=== PATIENT | male | born 1960 | race Asian ===

== ENCOUNTER 2018-04-17 00:20 | Emergency (ER) | payer SELFPAY ==
[~2018-04-17] VITALS: Ht 167.6 cm; Wt 72.7 kg
[2018-04-17] MEDS ORDERED: CefTRIAXone SODIUM 1 GM/VIAL IM ONE (02:15)
[2018-04-17] MEDS ORDERED: AZITHROMYCIN 250 MG TABLET PO ONE (02:15)
[2018-04-17] MEDS ORDERED: LIDOCAINE/PF 1% 2 ML VIAL IM ONE (02:15)
[2018-04-17 03:28] VITALS: BP 135/82
== END 2018-04-17 03:39 | disposition home or self-care (01) ==
LOC: EMS 00:22
DX: J18.9 Pneumonia, unspecified organism (principal); E11.9 Type 2 diabetes mellitus without complications; F17.210 Nicotine dependence, cigarettes, uncomplicated; F12.90 Cannabis use, unspecified, uncomplicated
CPT/HCPCS: 71045; 96372; 99283; J0696; J3490

== ENCOUNTER 2020-04-23 10:54 | Emergency (ER) | payer MEDICAID ==
[~2020-04-23] VITALS: Ht 167.6 cm; Wt 70.5 kg
[2020-04-23] MEDS ORDERED: ACETAMINOPHEN 500 MG TABLET PO ONE (12:00)
[2020-04-23] MEDS ORDERED: GuaiFENesin/D-METHORPHAN [SUGAR-FREE] 200-20MG/10 ML SYRUP UDCUP PO ONE (12:00)
[2020-04-23 12:32] LABS: BASOPHILS % (AUTO) 1.3 % (0.0-2.0); EOSINOPHILS % (AUTO) 0 % (1.0-6.0); HEMATOCRIT 45.7 % (41-53); HEMOGLOBIN 15.3 g/dL (13.5-17.5); LYMPHOCYTES # (AUTO) 0.6 K/uL (1.0-4.8); LYMPHOCYTES % (AUTO) 12.7 % (22.0-44.0); MEAN CORPUSCULAR HEMOGLOBIN 30.1 pg (26.0-34.0); MEAN CORPUSCULAR HGB CONC 33.6 G/dL (31.0-37.0); MEAN CORPUSCULAR VOLUME 90 fL (80-100); MONOCYTES # (AUTO) 0.4 K/uL (0.1-1.0); MONOCYTES % (AUTO) 8.5 % (2.0-9.0); NEUTROPHILS # (AUTO) 3.7 K/uL (1.8-7.7); NEUTROPHILS % (AUTO) 77.5 % (40.0-70.0); PLATELET COUNT (AUTO) 120 K/uL (150-450)
[2020-04-23 12:48] LABS: COVID AG,FIA SOURCE NASOPHARYNGEAL
[2020-04-23 13:02] LABS: ANION GAP 12 mmol/L (8-16); CALCIUM, TOTAL 7.9 mg/dL (8.8-10.5); CARBON DIOXIDE 25 mmol/L (22-29); CHLORIDE 95 mmol/L (98-107); CREATININE 1.26 mg/dL (0.60-1.30); GLOMERULAR FILTR. RATE CALC 59 mL/min (>60); GLUCOSE,RANDOM 201 mg/dL (70-110); POTASSIUM 3.7 mmol/L (3.5-5.1); SODIUM SERUM 132 mmol/L (136-145); UREA NITROGEN, BLOOD 12 mg/dL (7-18)
[2020-04-23 13:07] LABS: ALANINE AMINOTRANSFERASE 52 U/L (12-78); ALBUMIN 3.3 g/dL (3.4-5.0); ALKALINE PHOSPHATASE 87 U/L (46-116); ASPARTATE AMINOTRANSFERASE 34 U/L (15-37); BILIRUBIN,TOTAL 0.4 mg/dL (0.1-1.0); TOTAL PROTEIN, SERUM 7.4 g/dL (6.4-8.2)
[2020-04-23 13:08] LABS: B-TYPE NATRIURETIC PEPTIDE < 5 pg/mL (0-100)
[2020-04-23 13:50] VITALS: BP 133/79
== END 2020-04-23 14:32 | disposition home or self-care (01) ==
LOC: EMS 10:56
DX: U07.1 COVID-19 (principal)
CPT/HCPCS: 36415; 71045; 80053; 83880; 84484; 85025; 87426; 99284; U0003

== ENCOUNTER 2024-10-02 09:25 | Inpatient (IN) | payer MEDICAID ==
[~2024-10-02] VITALS: Ht 170.2 cm; Wt 80.6 kg
[2024-10-02 10:22] LABS: BASOPHILS % (AUTO) 0.4 % (0.0-2.0); HEMATOCRIT 43.1 % (41-53); HEMOGLOBIN 14.9 g/dL (13.5-17.5); LYMPHOCYTES # (AUTO) 1.3 K/uL (1.0-4.8); MEAN CORPUSCULAR HEMOGLOBIN 30.6 pg (26.0-34.0); MEAN CORPUSCULAR HGB CONC 34.6 G/dL (31.0-37.0); MEAN CORPUSCULAR VOLUME 88 fL (80-100); MONOCYTES # (AUTO) 0.6 K/uL (0.1-1.0); MONOCYTES % (AUTO) 7.7 % (2.0-9.0); NEUTROPHILS # (AUTO) 6.2 K/uL (1.8-7.7); NEUTROPHILS % (AUTO) 74.9 % (40.0-70.0); PLATELET COUNT (AUTO) 232 K/uL (150-450); RED BLOOD CELL COUNT(AUTO) 4.87 MIL/uL (4.50-5.90); RED CELL DISTRIBUTION WIDTH 13.3 % (11.5-14.5); WHITE BLOOD COUNT (AUTO) 8.3 K/uL (4.5-11.0)
[2024-10-02 10:33] LABS: ALCOHOL, BLOOD (SERUM) < 3 mg/dL (0-10)
[2024-10-02 10:36] LABS: ANION GAP 8 mmol/L (8-16); CALCIUM, TOTAL 8.6 mg/dL (8.8-10.5); CARBON DIOXIDE 28 mmol/L (22-29); CHLORIDE 100 mmol/L (98-107); CREATININE 1.09 mg/dL (0.60-1.30); GLOMERULAR FILTR. RATE CALC > 60 mL/min (>60); GLUCOSE,RANDOM 289 mg/dL (70-110); POTASSIUM 3.6 mmol/L (3.5-5.1); SODIUM SERUM 136 mmol/L (136-145); TROPONIN I-HIGH SENSITIVITY 54 ng/L (<76); UREA NITROGEN, BLOOD 10 mg/dL (7-18)
[2024-10-02 10:38] LABS: B-TYPE NATRIURETIC PEPTIDE 109 pg/mL (0-100)
[2024-10-02 10:42] LABS: CREATINE KINASE, TOTAL ONLY 75 U/L (39-308)
[2024-10-02 10:57] LABS: COVID AG,FIA SOURCE NASAL SWAB
[2024-10-02] MEDS: FUROSEMIDE 20 MG/2 ML VIAL IVP ONE (11:17)
[2024-10-02 11:28] LABS: INFLUENZA TYPE A NEGATIVE FOR TYPE A (NEGATIVE); INFLUENZA TYPE B NEGATIVE FOR TYPE B (NEGATIVE); SARS-COV2 (COVID) ANTIGEN,FIA Negative (Negative)
[2024-10-02 12:36] LABS: PH,URINE DRUG SCREEN 6.5 (5.0-8.0)
[2024-10-02 12:43] LABS: ALCOHOL, URINE DRUG SCREEN NEGATIVE (NEGATIVE); AMPHET/METH SCREEN,URINE POSITIVE (NEGATIVE); BARBITURATE SCREEN, URINE NEGATIVE (NEGATIVE); BENZODIAZEPINES SCREEN,URINE NEGATIVE (NEGATIVE); CANNABINOID SCREEN,URINE NEGATIVE (NEGATIVE); COCAINE SCREEN,URINE NEGATIVE (NEGATIVE); METHADONE SCREEN, URINE NEGATIVE (NEGATIVE); OPIATE SCREEN,URINE POSITIVE (NEGATIVE); PHENCYCLIDINE SCREEN,URINE NEGATIVE (NEGATIVE)
[2024-10-02] MEDS ORDERED: ALBUTEROL SULFATE 2.5 MG/0.5 ML NEB SOLUTION NEB PRN (13:00)
[2024-10-02] MEDS ORDERED: ACETAMINOPHEN 325 MG TABLET PO PRN (13:00)
[2024-10-02] MEDS ORDERED: DEXTROSE 50%-WATER 25 GM/50 ML SYRINGE IVP PRN (13:30)
[2024-10-02 15:51] VITALS: BP 126/57; PULSE 89; RESP 19; TEMP 98.1; O2SAT 99
[2024-10-02] MEDS: HEPARIN SODIUM,PORCINE 5,000 UNITS/ML VIAL SQ SCH (16:01)
[2024-10-02 16:30] VITALS: PULSE 96; RESP 16; O2SAT 97
[2024-10-02 17:16] LABS: GLUCOMETER DEV NAME(LOC) 5S.1D; GLUCOSE,POINT OF CARE 145 MG/DL (70-110)
[2024-10-02 19:16] VITALS: BP 114/74; PULSE 105; RESP 19; TEMP 97.9; O2SAT 93
[2024-10-02] MEDS: DOCUSATE SODIUM 100 MG CAPSULE PO SCH (20:06)
[2024-10-02] MEDS: INSULIN LISPRO 100 UNITS/ML SQ PRN (20:08)
[2024-10-02 23:50] VITALS: BP 122/89; PULSE 99; RESP 18; TEMP 98.2; O2SAT 95
[2024-10-03 04:04] VITALS: BP 123/75; PULSE 96; RESP 19; TEMP 97.9; O2SAT 96
[2024-10-03 07:11] LABS: BASOPHILS % (AUTO) 0.2 % (0.0-2.0); EOSINOPHILS % (AUTO) 1.7 % (1.0-6.0); HEMATOCRIT 44.3 % (41-53); HEMOGLOBIN 15.1 g/dL (13.5-17.5); LYMPHOCYTES # (AUTO) 1.7 K/uL (1.0-4.8); LYMPHOCYTES % (AUTO) 21.9 % (22.0-44.0); MEAN CORPUSCULAR HEMOGLOBIN 30.5 pg (26.0-34.0); MEAN CORPUSCULAR HGB CONC 34.2 G/dL (31.0-37.0); MEAN CORPUSCULAR VOLUME 89 fL (80-100); MONOCYTES # (AUTO) 0.9 K/uL (0.1-1.0); NEUTROPHILS # (AUTO) 4.9 K/uL (1.8-7.7); NEUTROPHILS % (AUTO) 64.2 % (40.0-70.0); PLATELET COUNT (AUTO) 242 K/uL (150-450); RED BLOOD CELL COUNT(AUTO) 4.96 MIL/uL (4.50-5.90); RED CELL DISTRIBUTION WIDTH 13.8 % (11.5-14.5); WHITE BLOOD COUNT (AUTO) 7.7 K/uL (4.5-11.0)
[2024-10-03 07:30] LABS: ANION GAP 7 mmol/L (8-16); CALCIUM, TOTAL 8.6 mg/dL (8.8-10.5); CARBON DIOXIDE 30 mmol/L (22-29); CHLORIDE 101 mmol/L (98-107); CREATININE 0.89 mg/dL (0.60-1.30); GLOMERULAR FILTR. RATE CALC > 60 mL/min (>60); GLUCOSE,RANDOM 200 mg/dL (70-110); POTASSIUM 3.8 mmol/L (3.5-5.1); SODIUM SERUM 138 mmol/L (136-145); UREA NITROGEN, BLOOD 12 mg/dL (7-18)
[2024-10-03] MEDS: FAMOTIDINE 20 MG TABLET PO SCH (08:03)
[2024-10-03 08:28] VITALS: BP 138/88; PULSE 94; RESP 18; TEMP 98.4; O2SAT 99
[2024-10-03 11:26] LABS: GLUCOMETER DEV NAME(LOC) 5S.2D; GLUCOSE,POINT OF CARE 163 MG/DL (70-110)
[2024-10-03 11:26] LABS: GLUCOMETER DEV NAME(LOC) 5S.2D; GLUCOSE,POINT OF CARE 233 MG/DL (70-110)
[2024-10-03] MEDS: lisinopriL 5 MG TABLET PO SCH (11:32)
[2024-10-03 11:51] LABS: GLUCOMETER DEV NAME(LOC) 5S.1D; GLUCOSE,POINT OF CARE 186 MG/DL (70-110)
[2024-10-03 12:16] VITALS: BP 119/75; PULSE 92; RESP 18; TEMP 98.1; O2SAT 95
[2024-10-03 16:16] VITALS: BP 140/77; PULSE 94; RESP 18; TEMP 97.2; O2SAT 95
[2024-10-03 17:30] LABS: GLUCOMETER DEV NAME(LOC) 5S.1D; GLUCOSE,POINT OF CARE 233 MG/DL (70-110)
[2024-10-03 19:34] VITALS: BP 112/77; PULSE 105; RESP 17; TEMP 97.5; O2SAT 96
[2024-10-03 21:30] LABS: GLUCOMETER DEV NAME(LOC) 5S.1D; GLUCOSE,POINT OF CARE 194 MG/DL (70-110)
[2024-10-03 23:15] VITALS: BP 131/86; PULSE 74; RESP 18; TEMP 97.7; O2SAT 95
[2024-10-04 04:47] VITALS: BP 129/81; PULSE 101; RESP 18; TEMP 98.1; O2SAT 98
[2024-10-04 06:31] LABS: GLUCOMETER DEV NAME(LOC) 5S.2D; GLUCOSE,POINT OF CARE 202 MG/DL (70-110)
[2024-10-04 07:58] LABS: BASOPHILS % (AUTO) 0.3 % (0.0-2.0); EOSINOPHILS % (AUTO) 2.7 % (1.0-6.0); HEMATOCRIT 44.4 % (41-53); HEMOGLOBIN 15.1 g/dL (13.5-17.5); LYMPHOCYTES # (AUTO) 1.5 K/uL (1.0-4.8); LYMPHOCYTES % (AUTO) 24.8 % (22.0-44.0); MEAN CORPUSCULAR HEMOGLOBIN 30.3 pg (26.0-34.0); MEAN CORPUSCULAR HGB CONC 34.1 G/dL (31.0-37.0); MEAN CORPUSCULAR VOLUME 89 fL (80-100); MONOCYTES # (AUTO) 0.6 K/uL (0.1-1.0); MONOCYTES % (AUTO) 10.4 % (2.0-9.0); NEUTROPHILS # (AUTO) 3.8 K/uL (1.8-7.7); NEUTROPHILS % (AUTO) 61.8 % (40.0-70.0); PLATELET COUNT (AUTO) 242 K/uL (150-450); RED BLOOD CELL COUNT(AUTO) 4.98 MIL/uL (4.50-5.90); RED CELL DISTRIBUTION WIDTH 13.5 % (11.5-14.5); WHITE BLOOD COUNT (AUTO) 6.1 K/uL (4.5-11.0)
[2024-10-04 08:10] LABS: ANION GAP 9 mmol/L (8-16); CALCIUM, TOTAL 8.6 mg/dL (8.8-10.5); CARBON DIOXIDE 26 mmol/L (22-29); CHLORIDE 104 mmol/L (98-107); CREATININE 0.75 mg/dL (0.60-1.30); GLOMERULAR FILTR. RATE CALC > 60 mL/min (>60); GLUCOSE,RANDOM 187 mg/dL (70-110); SODIUM SERUM 139 mmol/L (136-145); UREA NITROGEN, BLOOD 12 mg/dL (7-18)
[2024-10-04] MEDS: SPIRONOLACTONE 25 MG TABLET PO SCH (08:47)
[2024-10-04] MEDS: METOPROLOL SUCCINATE 25 MG ER TABLET PO SCH (08:48)
[2024-10-04] MEDS: atenoloL 25 MG TABLET PO SCH (08:49)
[2024-10-04] MEDS: LOSARTAN POTASSIUM 25 MG TABLET PO SCH (08:51)
[2024-10-04] MEDS ORDERED: ASPI-1444 PO (13:57)
[2024-10-04] MEDS ORDERED: SPIR-37 PO (13:57)
[2024-10-04] MEDS ORDERED: EMPA10TA3 PO (13:57)
[2024-10-04] MEDS ORDERED: METO25XL PO (13:57)
[2024-10-04] MEDS ORDERED: LOSA-417 PO (13:57)
[2024-10-04] MEDS ORDERED: ATOR20TA PO (13:57)
[2024-10-04] MEDS ORDERED: FURO20TA5 PO (13:58)
[2024-10-04 17:05] LABS: GLUCOMETER DEV NAME(LOC) 5S.1D; GLUCOSE,POINT OF CARE 187 MG/DL (70-110)
== END 2024-10-04 16:30 | disposition home or self-care (01) | DRG 194 ==
LOC: EMS 09:35 → EDH 12:46 → 5S 15:33
PROVIDERS: ADMIT Internal Medicine; ATTEND Internal Medicine
DX: I11.0 Hypertensive heart disease with heart failure (principal); E11.9 Type 2 diabetes mellitus without complications; I50.21 Acute systolic (congestive) heart failure; F15.90 Other stimulant use, unspecified, uncomplicated; Z20.822 Contact with and (suspected) exposure to COVID-19; Z79.4 Long term (current) use of insulin; Z87.891 Personal history of nicotine dependence
CPT/HCPCS: 71045; 80048; 80307; 82550; 82962; 83036; 83735; 83880; 84484; 85025; 87804; 93005; 93306; 96374; 99285; G0238; G0480; J1644; J1940; 36415-L1; 36415-TC

== ENCOUNTER 2024-10-10 15:17 | Inpatient (IN) | payer MEDICAID ==
[~2024-10-10] VITALS: Ht 167.6 cm; Wt 71.6 kg
[~2024-10-10 15:17] MED LIST: ASPI-1444 PO; ATOR20TA PO; EMPA10TA3 PO; FURO20TA5 PO; LOSA-417 PO; METO25XL PO; SPIR-37 PO
[2024-10-10 15:41] LABS: GLUCOMETER DEV NAME(LOC) ER.7; GLUCOSE,POINT OF CARE 176 MG/DL (70-110)
[2024-10-10 16:07] LABS: PLATELET COUNT (AUTO) 243 K/uL (150-450); RED BLOOD CELL COUNT(AUTO) 5.33 MIL/uL (4.50-5.90); RED CELL DISTRIBUTION WIDTH 13.3 % (11.5-14.5); WHITE BLOOD COUNT (AUTO) 8.9 K/uL (4.5-11.0)
[2024-10-10 16:14] LABS: CALCIUM, TOTAL 8.6 mg/dL (8.8-10.5); CREATININE 1.07 mg/dL (0.60-1.30); GLOMERULAR FILTR. RATE CALC > 60 mL/min (>60); GLUCOSE,RANDOM 181 mg/dL (70-110); SODIUM SERUM 131 mmol/L (136-145); UREA NITROGEN, BLOOD 29 mg/dL (7-18)
[2024-10-10 16:18] LABS: ALCOHOL, BLOOD (SERUM) < 3 mg/dL (0-10)
[2024-10-10 16:23] LABS: LACTIC ACID 1.8 mmol/L (0.4-2.0); TROPONIN I-HIGH SENSITIVITY 12 ng/L (<76)
[2024-10-10] MEDS: CLOPIDOGREL BISULFATE 75 MG TABLET PO ONE (17:26)
[2024-10-10] MEDS: ASPIRIN 325 MG TABLET PO ONE (17:26)
[2024-10-10 18:45] LABS: APPEARANCE,URINE CLEAR (CLEAR); GLUCOSE, URINE (UA) >=1000 mg/dL (NEGATIVE); LEUKOCYTE ESTERASE ,URINE NEGATIVE (NEGATIVE); NITRATE,URINE NEGATIVE (NEGATIVE); OCCULT BLOOD,URINE NEGATIVE (NEGATIVE); PH,URINE DRUG SCREEN 5.0 (5.0-8.0); SPECIFIC GRAVITIY, URINE 1.032 (1.003-1.030)
[2024-10-10 18:47] LABS: ALCOHOL, URINE DRUG SCREEN NEGATIVE (NEGATIVE); AMPHET/METH SCREEN,URINE NEGATIVE (NEGATIVE); BARBITURATE SCREEN, URINE NEGATIVE (NEGATIVE); CANNABINOID SCREEN,URINE NEGATIVE (NEGATIVE); COCAINE SCREEN,URINE NEGATIVE (NEGATIVE); METHADONE SCREEN, URINE NEGATIVE (NEGATIVE)
[2024-10-10 19:26] LABS: SQUAMOUS EPITHELIAL CELL,UR Rare /LPF (None Seen)
[2024-10-10 20:10] VITALS: BP 125/84; PULSE 82; RESP 18; TEMP 97.7; O2SAT 95
[2024-10-10 20:34] VITALS: BP 110/60; PULSE 79; RESP 18; TEMP 98.1; O2SAT 94
[2024-10-10] MEDS ORDERED: ONDANSETRON HCL 4 MG/2 ML VIAL IVP PRN (21:15)
[2024-10-10] MEDS ORDERED: MAGNESIUM HYDROXIDE SUSPENSION 30 ML UDCUP PO PRN (21:15)
[2024-10-10] MEDS ORDERED: HYDROCODONE/ACETAMINOPHEN 5-325 MG TABLET PO PRN (21:15)
[2024-10-10] MEDS ORDERED: MORPHINE SULFATE 2 MG/ML SYRINGE IVP PRN (21:15)
[2024-10-10] MEDS ORDERED: BISACODYL 10 MG RECTAL RECTAL SUPPOSITORY PR PRN (21:15)
[2024-10-10] MEDS ORDERED: ACETAMINOPHEN 325 MG TABLET PO PRN (21:15)
[2024-10-10 23:18] VITALS: BP 138/67; PULSE 86; RESP 18; TEMP 97.7; O2SAT 93
[2024-10-10] MEDS: ZOLPIDEM TARTRATE 5 MG TABLET PO PRN (23:27)
[2024-10-10] MEDS: HEPARIN SODIUM,PORCINE 5,000 UNITS/ML VIAL SQ SCH (23:28)
[2024-10-11 01:43] LABS: APPEARANCE,URINE CLEAR (CLEAR); GLUCOSE, URINE (UA) >=1000 mg/dL (NEGATIVE); LEUKOCYTE ESTERASE ,URINE NEGATIVE (NEGATIVE); NITRATE,URINE NEGATIVE (NEGATIVE); OCCULT BLOOD,URINE NEGATIVE (NEGATIVE); PH,URINE DRUG SCREEN 5.5 (5.0-8.0); SPECIFIC GRAVITIY, URINE 1.033 (1.003-1.030)
[2024-10-11 01:48] LABS: ALCOHOL, URINE DRUG SCREEN NEGATIVE (NEGATIVE); AMPHET/METH SCREEN,URINE NEGATIVE (NEGATIVE); BARBITURATE SCREEN, URINE NEGATIVE (NEGATIVE); CANNABINOID SCREEN,URINE NEGATIVE (NEGATIVE); COCAINE SCREEN,URINE NEGATIVE (NEGATIVE); METHADONE SCREEN, URINE NEGATIVE (NEGATIVE)
[2024-10-11 01:57] LABS: SQUAMOUS EPITHELIAL CELL,UR Few /LPF (None Seen)
[2024-10-11 03:26] VITALS: BP 136/82; PULSE 78; RESP 18; TEMP 97.9; O2SAT 93
[2024-10-11 08:00] VITALS: BP 138/74; PULSE 82; RESP 18; TEMP 98.2; O2SAT 96
[2024-10-11] MEDS: DOCUSATE SODIUM 100 MG CAPSULE PO SCH (08:54)
[2024-10-11] MEDS: EMPAGLIFLOZIN 10 MG TABLET PO SCH (08:54)
[2024-10-11] MEDS: ATORVASTATIN CALCIUM 20 MG TABLET PO SCH (08:54)
[2024-10-11] MEDS: FUROSEMIDE 20 MG TABLET PO SCH (08:54)
[2024-10-11] MEDS: ASPIRIN 81 MG DR TABLET PO SCH (08:54)
[2024-10-11] MEDS: PANTOPRAZOLE SODIUM 40 MG DR TABLET PO SCH (08:55)
[2024-10-11] MEDS: SPIRONOLACTONE 25 MG TABLET PO SCH (08:55)
[2024-10-11 12:00] VITALS: BP 135/80; PULSE 81; RESP 18; TEMP 97.7; O2SAT 100
[2024-10-11 16:00] VITALS: BP 135/80; PULSE 99; RESP 18; TEMP 97.7; O2SAT 100
[2024-10-11 20:26] VITALS: BP 118/72; PULSE 97; RESP 18; TEMP 97.5; O2SAT 96
[2024-10-12 00:19] VITALS: BP 116/67; PULSE 89; RESP 16; TEMP 97.7; O2SAT 96
[2024-10-12 05:02] VITALS: BP 141/83; PULSE 92; RESP 18; TEMP 97.5; O2SAT 96
[2024-10-12 06:39] LABS: PLATELET COUNT (AUTO) 203 K/uL (150-450); RED BLOOD CELL COUNT(AUTO) 4.96 MIL/uL (4.50-5.90); RED CELL DISTRIBUTION WIDTH 13.4 % (11.5-14.5); WHITE BLOOD COUNT (AUTO) 6.6 K/uL (4.5-11.0)
[2024-10-12 06:44] LABS: CALCIUM, TOTAL 9.0 mg/dL (8.8-10.5); CREATININE 0.88 mg/dL (0.60-1.30); GLOMERULAR FILTR. RATE CALC > 60 mL/min (>60); GLUCOSE,RANDOM 157 mg/dL (70-110); SODIUM SERUM 133 mmol/L (136-145); UREA NITROGEN, BLOOD 18 mg/dL (7-18)
[2024-10-12 08:17] VITALS: BP 145/75; PULSE 92; RESP 19; TEMP 97.7; O2SAT 97
[2024-10-12 11:28] VITALS: BP 145/89; PULSE 105; RESP 20; TEMP 98.4; O2SAT 99
[2024-10-12 16:08] VITALS: BP 143/87; PULSE 90; RESP 18; TEMP 97.9; O2SAT 98
[2024-10-12 20:00] VITALS: BP 121/84; PULSE 105; RESP 18; TEMP 97.5; O2SAT 96
[2024-10-13] VITALS (7 sets, daily range): BP systolic 109–149; BP diastolic 65–92; PULSE 92–104; RESP 18; TEMP 97.3–99; O2SAT 94–99
[2024-10-13 07:00] LABS: PLATELET COUNT (AUTO) 213 K/uL (150-450); RED BLOOD CELL COUNT(AUTO) 5.09 MIL/uL (4.50-5.90); RED CELL DISTRIBUTION WIDTH 13.4 % (11.5-14.5); WHITE BLOOD COUNT (AUTO) 8.4 K/uL (4.5-11.0)
[2024-10-13 07:09] LABS: CALCIUM, TOTAL 9.1 mg/dL (8.8-10.5); CREATININE 0.91 mg/dL (0.60-1.30); GLOMERULAR FILTR. RATE CALC > 60 mL/min (>60); GLUCOSE,RANDOM 138 mg/dL (70-110); SODIUM SERUM 140 mmol/L (136-145); UREA NITROGEN, BLOOD 17 mg/dL (7-18)
[2024-10-13] MEDS ORDERED: GADOTERATE MEGLUMINE 10 MMOL/20 ML VIAL IVP ONE (09:45)
[2024-10-13] MEDS ORDERED: IOHEXOL 350 MG/ML 100 ML VIAL ONE (16:13)
[2024-10-13] MEDS ORDERED: SODIUM CHLORIDE 0.9% 100 ML ONE (16:13)
[2024-10-13] MEDS ORDERED: 0.9% SODIUM CHLORIDE 10 ML SYRINGE IVP ONE (16:13)
[2024-10-14 03:27] VITALS: BP 120/75; PULSE 93; RESP 19; TEMP 97.9; O2SAT 100
[2024-10-14 06:47] LABS: PLATELET COUNT (AUTO) 213 K/uL (150-450); RED BLOOD CELL COUNT(AUTO) 5.05 MIL/uL (4.50-5.90); RED CELL DISTRIBUTION WIDTH 13.4 % (11.5-14.5); WHITE BLOOD COUNT (AUTO) 7.6 K/uL (4.5-11.0)
[2024-10-14 06:57] LABS: CHOL/HDL RATIO 2.2 (4.2-7.3); LDL CHOL (CALC.) 31.0 mg/dL (0-130)
[2024-10-14 07:06] LABS: CALCIUM, TOTAL 9.0 mg/dL (8.8-10.5); CREATININE 0.96 mg/dL (0.60-1.30); GLOMERULAR FILTR. RATE CALC > 60 mL/min (>60); GLUCOSE,RANDOM 143 mg/dL (70-110); SODIUM SERUM 136 mmol/L (136-145); UREA NITROGEN, BLOOD 21 mg/dL (7-18)
[2024-10-14 07:38] VITALS: BP 127/63; PULSE 97; RESP 18; TEMP 98; O2SAT 99
[2024-10-14] MEDS: CLOPIDOGREL BISULFATE 75 MG TABLET PO SCH (08:19)
[2024-10-14] MEDS: ASPIRIN 81 MG CHEWABLE TABLET PO SCH (08:20)
[2024-10-14 11:04] VITALS: BP 120/70; PULSE 91; RESP 18; TEMP 97.8; O2SAT 98
[2024-10-14 18:36] VITALS: BP 129/79; PULSE 98; RESP 18; TEMP 97.7; O2SAT 94
[2024-10-14 20:08] VITALS: BP 125/78; PULSE 91; RESP 18; TEMP 98.1; O2SAT 96
[2024-10-15 04:35] VITALS: BP 144/78; PULSE 85; RESP 20; TEMP 97.7; O2SAT 96
[2024-10-15 08:45] VITALS: BP 121/75; PULSE 87; RESP 17; TEMP 97.7; O2SAT 98
[2024-10-15] MEDS ORDERED: CLOP75TA83 PO (11:03)
== END 2024-10-15 16:25 | disposition home or self-care (01) | DRG 45 ==
LOC: EMS 15:17 → EDH 17:03 → 5N 20:02 → 4E 10-14 15:34
PROVIDERS: ADMIT Internal Medicine; ATTEND Internal Medicine
DX: I63.29 Cerebral infarction due to unspecified occlusion or stenosis of other precerebral arteries (principal); R65.11 Systemic inflammatory response syndrome (SIRS) of non-infectious origin with acute organ dysfunction; I50.23 Acute on chronic systolic (congestive) heart failure; I11.0 Hypertensive heart disease with heart failure; E11.9 Type 2 diabetes mellitus without complications; E78.5 Hyperlipidemia, unspecified; F17.210 Nicotine dependence, cigarettes, uncomplicated; R26.89 Other abnormalities of gait and mobility; I42.9 Cardiomyopathy, unspecified; R47.1 Dysarthria and anarthria; G83.24 Monoplegia of upper limb affecting left nondominant side; F15.10 Other stimulant abuse, uncomplicated; I35.1 Nonrheumatic aortic (valve) insufficiency; Z79.82 Long term (current) use of aspirin; Z91.199 Patient's noncompliance with other medical treatment and regimen due to unspecified reason; Z79.899 Other long term (current) drug therapy
CPT/HCPCS: 70450; 70496; 70553; 71045; 80048; 80061; 80307; 81001; 82962; 83036; 83605; 83690; 83880; 84484; 85025; 87081; 92610; 93005; 97110; 97112; 97116; 97162; 97166; 97530; 99285; G0378; G0480; J1644; J7050; 36415-L1; 36415-TC